=== PATIENT | female | born 1980 | race Caucasian/White ===

== ENCOUNTER → 2017-08-29 | Outpatient (CLI) | payer OTHER ==
[~2017-08-29] MED LIST: MTR600X PO; OXYC-57 PO; PRENTAB26 PO
--- NOTE | 2017-08-29 07:31 | DIAGNOSTIC IMAGING REPORT ---
FUSION CT SINUSES W/O CLINICAL HISTORY: J32.9 sinusitis COMPARISON STUDY: No previous studies for comparison. FINDINGS: There is minor maxilla sinus mucosal thickening. The mastoid air cells are symmetrically aerated. The middle ear cavities are well aerated. The frontal, ethmoid, and sphenoid sinuses are clear. No orbital masses are visualized. There is no hydrocephalus. There is anterior nasal septal deviation to the right. There is a left-sided nasal septal spur. There is pneumatization of both middle turbinates. The ethmoid notches are unprotected. The right olfactory fossa measures 6.6 mm in depth. The left olfactory fossa measures 6.1 cm in depth. There is moderate ostial narrowing of the left ostiomeatal unit. There is mild ostial narrowing of the right ostiomeatal unit. There is mild bilateral infundibular narrowing. The frontoethmoidal recesses are patent. The sphenoid recess is patent. IMPRESSION: 1. Nasal septal deviation of the left-sided nasal septal spur 2. Pneumatization of both middle turbinates 3. Ostial and infundibular narrowing of the ostiomeatal units bilaterally 4. No evidence of acute sinusitis 5. The ethmoid notches are unprotected Electronically signed by: Prashant Blackmon M.D. 08/29/2017 7:30 AM Dictated Date/Time: 08/29/2017 7:24 AM
== END | disposition home or self-care (01) ==
LOC: C.CTS 06:35
DX: J32.9 Chronic sinusitis, unspecified (principal); J34.2 Deviated nasal septum; J34.3 Hypertrophy of nasal turbinates